=== PATIENT | male | born 1955 | race Caucasian/White ===

== ENCOUNTER → 2016-09-14 | Outpatient (CLI) | payer OTHER ==
[~2016-09-14] VITALS: Ht 175.3 cm; Wt 92.9 kg
[~2016-09-14] MED LIST: ASPIR 8181 MG PO; CLONIDINE0.1 PO; CYMBALTA30 MG PO; FENTANYL PA50 MCG/HR TRANSDERM; FISH OIL 1,001000 M2 PO; GLUCOPHAGE1000 MG PO; IBUPROFEN 200200 M1 PO; LANTUS100 UNIT/M SUBQ; LINZESS290 MCG PO; LISINOPRIL10 MG PO; MAGNESIUM OXID400 MG PO; METHADONE HCL 110 M1 PO; METHADONE HCL 110 MG PO; METHADONE HCL5 MG PO; MIRALAX17 GM PO; MOVANTIK25 MG PO; NORVASC5 MG PO; NOVOLOG100 UNIT/1 SUBQ; TRIPLE FLEX CA1 EACH PO; ZANAFLEX4 MG PO
--- NOTE | ~2016-09-14 | HPC ---
[facility] [address] [place] [address] PAIN MANAGEMENT CONSULTATION Name: JEF PACE Room #: REG Macie Molina#: [id number] Admission: 09/14/16 Attend Phys: Rocael Perrin DO Discharge: Date of : 55 Report #: [id number] THIS REPORT FOR: //name// CC: Dain Perrin SUBJECTIVE: The patient is a very pleasant 61-year-old gentleman being treated for diffuse myelopathy, neuropathic pain, requiring complex medication management. He came to us on higher dose of opiates, we weaned down to methadone 10 mg t.i.d., Cymbalta was increased from 30 to 60 mg at last visit. He returns to pain clinic today, doing very well. He rates his pain about 3/10, primarily low back, knees, feet, and hands. They are present since 2009, dull, aching, sore, issues that he rates as 3/10 on a 0-10 visual analog scale for pain. PHYSICAL EXAMINATION: GENERAL: Shows a 61-year-old gentleman, BMI is 30.2 kilograms per meter squared. Blood pressure is 151/85, pulse is 79, respirations are 16. Alert and oriented to person, place, and time, judged to be a reasonable historian. Rises from the chair using armrest. Diffuse tenderness across the low back. Gait is tandem. Lower extremity strength is preserved. The patient is noting some problems with constipation. He has failed MiraLax and Colace along with diet and fluid. We reviewed the fact that opiate medications are being used to provide analgesia adequate to support activities of daily living, not attempting to achieve a specific pain score on the 0-10 Visual Analog Scale. The current opiate medications are providing sufficient analgesia to allow the patient to participate in activities of daily living. The patient is not exhibiting any aberrant behavior suggestive of drug diversion. The patient is not having any adverse reactions to medications. The patient is not suffering from daytime somnolence or mental acuity changes. The patient is managing opiate-induced constipation with appropriate ninc-yld-fgfjinx agents and dietary considerations. The patient was counseled on concern for caution with operating a motor vehicle while using opiate medications. A physical exam was performed and the patient's functional status was evaluated. All patients with back pain were advised against the bed rest greater than 4 days and were advised to return to normal activities. Pain score assessment was noted and the treatment plan was reviewed with the patient. All current medications, both prescribed and OTC were reviewed and reconciled on the electronic medical record. Tobacco screening was accomplished and smoking cessation was advised when indicated. BMI was noted and diet/exercise modification was recommended for all patients [place] [address] PAIN MANAGEMENT CONSULTATION Name: KATELYNNJEF Room #: REG CLMacie Molina#: [id number] Admission: 09/14/16 Attend Phys: Rocael Perrin DO Discharge: Date of : 55 Report #: [id number] I reviewed with the patient today their responsibilities to safeguard prescription medications, reviewed their responsibility to utilize medications only as prescribed by the physician. They are to seek and receive pain medications only from 1 physician group ( [facility]). They are to use 1 pharmacy and keep the clinic informed if they change pharmacies. Their responsibilities include making followup visits in a timely fashion and to avoid abrupt discontinuation of medication usage. Their responsibilities further include bringing their medications (bottles from the pharmacy with residual pills) to the visit for possible confirmation of pill counts and the patient understands it is their responsibility to submit to random drug screens to ensure both that the medications prescribed are present, and that no other controlled substances are present. All prescriptions provided today were generated electronically. ASSESSMENT: Diffuse myelopathy, idiopathic, neuropathic pain, requiring complex medication management, stable on current dose of medication, methadone 10 mg t.i.d., Cymbalta 60 mg daily. RECOMMENDATION: We will continue current medication unchanged for another 2 months, last urine drug screen on 01/23/2016 was positive for prescribed medications. I gave the patient a sample for Movantik 25 mg and a prescription for same if this works. <ELECTRONICALLY SIGNED> By: Rocael Perrin DO 09/17/16 0749 1246 2048 oRcael Perrin DO /nt
[2016-09-14 12:32] VITALS: BP 151/85
== END ==
LOC: PAIN 09:22
DX: G95.89 Other specified diseases of spinal cord (principal); G58.8 Other specified mononeuropathies; I10 Essential (primary) hypertension

== ENCOUNTER → 2016-11-09 | Outpatient (CLI) | payer OTHER ==
[~2016-11-09] VITALS: Ht 175.3 cm; Wt 92.8 kg
[2016-11-09 13:24] VITALS: BP 148/86; BP 18/86
== END ==
LOC: PAIN 06:54
DX: M79.2 Neuralgia and neuritis, unspecified (principal); M54.9 Dorsalgia, unspecified; Z87.898 Personal history of other specified conditions; I10 Essential (primary) hypertension

== ENCOUNTER → 2017-01-18 | Outpatient (CLI) | payer OTHER ==
[~2017-01-18] VITALS: Ht 175.3 cm; Wt 94.3 kg
--- NOTE | ~2017-01-18 | HPC ---
[facility] [address] [address] PAIN MANAGEMENT CONSULTATION Name: JEF PACE Room #: REG [facility] Tracy#: [id number] Admission: 01/18/17 Attend Phys: Rocael Perrin DO Discharge: Date of : 55 Report #: [id number] THIS REPORT FOR: //name// CC: Dain Perrin HISTORY OF PRESENT ILLNESS: The patient is a pleasant 61-year-old gentleman I have been treating for neuropathic pain affecting lower extremities, history of idiopathic myelopathy, axial back pain requiring high risk complex medication management. Buccal swab at last visit was accomplished. It was positive for prescribed medication (methadone) and no others. The patient returns to pain clinic today noting medications are providing sufficient analgesia to participate in activities of daily living. He states he feels better and he has been for quite some time. He rates the pain a 4 on a VAS. Again, pain is primarily low back, knees, feet and hands. It has been present since 2009. PHYSICAL EXAMINATION: GENERAL: Shows a 61-year-old gentleman. BMI is 30.7 kilograms per meter squared. VITAL SIGNS: Generally stable with modest systolic hypertension, blood pressure 156/71, pulse 63, respirations 16, oxygen saturation 100%. Again, BMI is 30.7. NEUROLOGIC: Alert and oriented to person, place and time. MUSCULOSKELETAL: Rises from chair using armrest. Gait is tandem. Some diffuse low back tenderness. Lumbar flexion is modestly limited. We reviewed the fact that opiate medications are being used to provide analgesia adequate to support activities of daily living, not attempting to achieve a specific pain score on the 0-10 Visual Analog Scale. The current opiate medications are providing sufficient analgesia to allow the patient to participate in activities of daily living. The patient is not exhibiting any aberrant behavior suggestive of drug diversion. The patient is not having any adverse reactions to medications. The patient is not suffering from daytime somnolence or mental acuity changes. The patient is managing opiate-induced constipation with appropriate whnf-nrd-rkidlvp agents and dietary considerations. The patient was counseled on concern for caution with operating a motor vehicle while using opiate medications. A physical exam was performed and the patient's functional status was evaluated. All patients with back pain were advised against the bed rest greater than 4 days and were advised to return to normal activities. Pain score assessment was noted and the treatment plan was reviewed with the patient. All current medications, both prescribed and OTC were reviewed and reconciled on the electronic medical record. Tobacco screening was accomplished and smoking cessation was advised when indicated. BMI was noted and diet/exercise modification was recommended for all patients following outside normal [address] [address] PAIN MANAGEMENT CONSULTATION Name: JEF PACE Marie Room #: REG CL Tracy#: [id number] Admission: 01/18/17 Attend Phys: Rocael Perrin DO Discharge: Date of : 55 Report #: [id number] parameters. I reviewed with the patient today their responsibilities to safeguard prescription medications, reviewed their responsibility to utilize medications only as prescribed by the physician. They are to seek and receive pain medications only from 1 physician group ([facility]). They are to use 1 pharmacy and keep the clinic informed if they change pharmacies. Their responsibilities include making followup visits in a timely fashion and to avoid abrupt discontinuation of medication usage. Their responsibilities further include bringing their medications (bottles from the pharmacy with residual pills) to the visit for possible confirmation of pill counts and the patient understands it is their responsibility to submit to random drug screens to ensure both that the medications prescribed are present, and that no other controlled substances are present. All prescriptions provided today were generated electronically. ASSESSMENT: Idiopathic myelopathy, neuropathic pain in the lower extremities requiring high risk complex medication management, component of axial back pain. RECOMMENDATION: Continue methadone 10 mg t.i.d. I have taken the liberty of writing for 3 months of current medication. Follow up at that time, earlier if needed. <ELECTRONICALLY SIGNED> By: Rocael Perrin DO 01/21/17 0755 1450 2038 Rocael Perrin DO /nt
[2017-01-18 13:56] VITALS: BP 156/71
== END ==
LOC: PAIN 06:50
DX: M79.2 Neuralgia and neuritis, unspecified (principal); M54.9 Dorsalgia, unspecified; G99.2 Myelopathy in diseases classified elsewhere

== ENCOUNTER → 2017-05-20 | Outpatient (CLI) | payer OTHER ==
[~2017-05-20] VITALS: Ht 175.3 cm; Wt 95.4 kg
[~2017-05-20] MED LIST changes: +BACLOFEN20 MG PO; +CARVEDILOL6.25 MG; +COLACE100 MG PO; +JARDIANCE25 MG PO; +NABUMETONE 500500 M1 PO; +NEURONTIN 300300 M1 PO; +VICTOZA 3-0.6 MG/0.1 SUBQ
--- NOTE | ~2017-05-20 | HPC ---
[facility] [address] [address] PAIN MANAGEMENT CONSULTATION Name: JEF PACE Room #: REG JALYN Molina#: [id number] Admission: 05/20/17 Attend Phys: Rocael Perrin DO Discharge: Date of : 55 Report #: [id number] THIS REPORT FOR: //name// CC: Dain Perrin The patient is a 61-year-old gentleman, being treated for idiopathic myelopathy, neuropathic pain, axial back pain requiring high risk complex medication management. Last seen in the pain clinic 01/18/2017, continued on methadone 10 mg t.i.d. Last random drug screen 11/09/2016, was positive for prescribed medications. The patient returns to pain clinic today noting medications are providing sufficient analgesia to participate in activities of daily living. He had to discontinue Cymbalta due to sedation. He fell 2 weeks ago with exacerbation of right shoulder pain. He incidentally notes that about 2 weeks prior to the fall, he had done significant yard work and the right shoulder become problematic, it is somewhat quieted down prior to the fall. He states he fell simply because he lost his balance and "got his legs caught." We talked today about concern for opiate analgesics and cognitive impairment. The patient denies any loss of consciousness. He is having trouble with blood sugars, last hemoglobin A1c was 11. He is continued on metformin, Lantus, and NovoLog insulin. The patient notes subjective pain score 7 on a VAS, again primarily pain in the low back, knees, feet and hands along with the right shoulder. Right shoulder shows slight decreased range of motion to abduction. Pain with resistance to rotation of the right arm. The deltoid, triceps and biceps strength is symmetric. Deep tendon reflexes are preserved. Passive and active range of motion exacerbates pain in the right shoulder. Appears to be a little compromise likely the rotator muscles for external rotation. PHYSICAL EXAMINATION: Otherwise, shows a 61-year-old gentleman, BMI is 31.1 kg/m2. Blood pressure 143/81, pulse 64, and respirations 16. We reviewed the fact that opiate medications are being used to provide analgesia adequate to support activities of daily living, not attempting to achieve a specific pain score on the 0-10 Visual Analog Scale. The current opiate medications are providing sufficient analgesia to allow the patient to participate in activities of daily living. The patient is not exhibiting any aberrant behavior suggestive of drug diversion. The patient is not having any adverse reactions to medications. The patient is not suffering from daytime somnolence or mental acuity changes. The patient is managing opiate-induced constipation with appropriate aruu-iyq-spbjrbv agents and dietary considerations. The patient was counseled on concern for caution with operating a motor vehicle while using opiate medications. [address] [address] PAIN MANAGEMENT CONSULTATION Name: JEF PACE Marie Room #: REG CLI Tracy#: [id number] Admission: 05/20/17 Attend Phys: Rocael Perrin DO Discharge: Date of : 55 Report #: [id number] A physical exam was performed and the patient's functional status was evaluated. All patients with back pain were advised against the bed rest greater than 4 days and were advised to return to normal activities. Pain score assessment was noted and the treatment plan was reviewed with the patient. All current medications, both prescribed and OTC were reviewed and reconciled on the electronic medical record. Tobacco screening was accomplished and smoking cessation was advised when indicated. BMI was noted and diet/exercise modification was recommended for all patients following outside normal parameters. I reviewed with the patient today their responsibilities to safeguard prescription medications, reviewed their responsibility to utilize medications only as prescribed by the physician. They are to seek and receive pain medications only from 1 physician group ( [facility]). They are to use 1 pharmacy and keep the clinic informed if they change pharmacies. Their responsibilities include making followup visits in a timely fashion and to avoid abrupt discontinuation of medication usage. Their responsibilities further include bringing their medications (bottles from the pharmacy with residual pills) to the visit for possible confirmation of pill counts and the patient understands it is their responsibility to submit to random drug screens to ensure both that the medications prescribed are present, and that no other controlled substances are present. All prescriptions provided today were generated electronically. ASSESSMENT: Chronic pain syndrome, requiring high risk complex medication management, idiopathic myelopathy, axial back pain in a gentleman with right shoulder pain. RECOMMENDATION: Continue current medication unchanged, methadone 10 mg t.i.d. Suggest the patient try and cut the midday dose to half a tablet decreasing from 30 to 25 mg of methadone. We will see him back in 3 months for reevaluation. Follow up with orthopedics if right shoulder pain continues to be problematic, though presently it appears to be improving incrementally. <ELECTRONICALLY SIGNED> By: Rocael Perrin DO 05/22/17 0720 1210 1708 Rocael Perrin DO /nt
[2017-05-20 09:57] VITALS: BP 143/81
== END ==
LOC: PAIN 06:52
DX: G95.89 Other specified diseases of spinal cord (principal); G89.4 Chronic pain syndrome; M25.511 Pain in right shoulder; M79.2 Neuralgia and neuritis, unspecified; M54.9 Dorsalgia, unspecified; Z79.899 Other long term (current) drug therapy

== ENCOUNTER → 2017-07-22 | Outpatient (CLI) | payer OTHER ==
[~2017-07-22] VITALS: Ht 175.3 cm; Wt 96.2 kg
--- NOTE | ~2017-07-22 | HPC ---
[facility] [address] [place] [address] PAIN MANAGEMENT CONSULTATION Name: JEF PACE Room #: REG JALYN Molina#: [id number] Admission: 07/22/17 Attend Phys: Rocael Perrin DO Discharge: Date of : 55 Report #: [id number] THIS REPORT FOR: //name// CC: Dain Perrin DATE OF SERVICE: 07/22/2017 HISTORY OF PRESENT ILLNESS: The patient is a 61-year-old gentleman typically treated for chronic pain syndrome, requiring complex medication management, idiopathic myelopathy, neuropathy and axial back pain. He was initially seen in consultation on 10/21/2015. He came to us on Duragesic 50 mcg for 6 or 7 years, changing every 48 hours. States his pain was still a 6-8 on a visual analog scale. After a long discussion with the patient, we elected to enter in opiate consent to treat contract. He has been fairly stable on methadone 10 mg t.i.d. for quite some time. He returns to the pain clinic today. He was seen from 1315 to 1345. Greater than 50% of time was spent counseling the patient. He was seen in the company of his who is supportive, though she is concerned that he is having increasing pain. Last visit, we talked about trying to further wean his opiate analgesic. We tried going down to 25 mg and then 20 mg of methadone. Nonetheless, I had written for 90 of the 10 mg tablets. He returns to the pain clinic today. He had fallen once since we last saw him. He tells me today his pain seems to be increasing. He relates poor glucose control, which he states is related to pain (?). States he has fallen "a couple of times." States his primary pain is in his back and legs. PHYSICAL EXAMINATION: GENERAL: Shows a 61-year-old gentleman, BMI is elevated at 31.3 kilograms per meter squared. VITAL SIGNS: Blood pressure is modestly elevated at 159/90, pulse 67, respirations 18. NEUROLOGIC: He is alert and oriented to person, place and time, judged to be a reasonable historian. MUSCULOSKELETAL: He has an endomorphic build. Rises from chair using armrest. Gait is mildly ataxic. The lower extremity strength is symmetric at 4/5. Lumbar flexion is limited to 80 degrees. Patellar and Achilles reflexes are preserved. Does have some tenderness and probable spasm in the thoracic paravertebral muscles from T5 down to T12. [facility] [address] [place] [address] PAIN MANAGEMENT CONSULTATION Name: JEF PACE Room #: REG Macie Molina#: [id number] Admission: 07/22/17 Attend Phys: Rocael Perrin DO Discharge: Date of : 55 Report #: [id number] Long discussion with the patient and his today about therapeutic options. I stressed that we are trying to find the lowest dose of opiate, possible to keep the patient functional. He has had chronic pain for many years. He has had multiple workups at [facility] per the patient and his who is an RN. Apparently, no etiology was ever found for his myriad complaints, though they did often suggest that he had fibromyalgia. I pointed out that fibromyalgia per the CDC should be treated with no opiates. Concerned that when I took over his care, he was quite opiate habituated and had opiate tolerance issues. His physical exam has remained relatively unchanged. Again, modestly ataxic gait, diffuse back tenderness with no focal neurologic findings. We reviewed the fact that opiate medications are being used to provide analgesia adequate to support activities of daily living, not attempting to achieve a specific pain score on the 0-10 Visual Analog Scale. The current opiate medications are providing sufficient analgesia to allow the patient to participate in activities of daily living. The patient is not exhibiting any aberrant behavior suggestive of drug diversion. The patient is not having any adverse reactions to medications. The patient is not suffering from daytime somnolence or mental acuity changes. The patient is managing opiate-induced constipation with appropriate dvbw-vzj-ilajmov agents and dietary considerations. The patient was counseled on concern for caution with operating a motor vehicle while using opiate medications. A physical exam was performed and the patient's functional status was evaluated. All patients with back pain were advised against the bed rest greater than 4 days and were advised to return to normal activities. Pain score assessment was noted and the treatment plan was reviewed with the patient. All current medications, both prescribed and OTC were reviewed and reconciled on the electronic medical record. Tobacco screening was accomplished and smoking cessation was advised when indicated. BMI was noted and diet/exercise modification was recommended for all patients following outside normal parameters. I reviewed with the patient today their responsibilities to safeguard prescription medications, reviewed their responsibility to utilize medications only as prescribed by the physician. They are to seek and receive pain medications only from 1 physician group ([facility]). They are to use 1 pharmacy and keep the clinic informed if they change pharmacies. Their responsibilities include making followup visits in a timely fashion and to avoid abrupt discontinuation of medication usage. Their responsibilities further include bringing their medications (bottles from the pharmacy with residual pills) to the visit for possible confirmation of pill counts and the patient understands it is their responsibility to submit to random drug screens to [address] [address] PAIN MANAGEMENT CONSULTATION Name: JEF PACE Room #: REG [facility]#: [id number] Admission: 07/22/17 Attend Phys: Rocael Perrin DO Discharge: Date of : 55 Report #: [id number] ensure both that the medications prescribed are present, and that no other controlled substances are present. All prescriptions provided today were generated electronically. ASSESSMENT: Idiopathic myelopathy, axial back pain, requiring complex medication management. RECOMMENDATION: Prolonged visit with the patient and his today. Ultimately, we elected to continue methadone 10 mg q.8 hours. We will add baclofen 20 mg 1-2 at bedtime for nighttime spasms. We will start nabumetone 500 mg t.i.d. and tizanidine encourage use 4 mg t.i.d. (he is using this fairly infrequently presently) for ongoing axial back pain, myofascial pain component. I strongly recommended a physical therapy for core stabilization, balance exercises and range of motion. The patient was discharged in good and stable condition. Follow up in 2 months for reevaluation. The patient was seen for approximately 30 minutes today, greater than 50% of this 25+ minute visit was spent counseling the patient. <ELECTRONICALLY SIGNED> By: Rocael Perrin DO 07/25/17 0938 1511 1755 Rocael Perrin DO /nt
[2017-07-22 13:16] VITALS: BP 159/90
== END ==
LOC: PAIN 07-05 10:49
DX: M54.9 Dorsalgia, unspecified (principal); G95.9 Disease of spinal cord, unspecified; Z79.899 Other long term (current) drug therapy

== ENCOUNTER → 2017-10-28 | Outpatient (CLI) | payer OTHER ==
[~2017-10-28] VITALS: Ht 172.7 cm; Wt 90.3 kg
[~2017-10-28] MED LIST changes: -NEURONTIN 300300 M1 PO
--- NOTE | ~2017-10-28 | HPC ---
[facility] [place] [address] PAIN MANAGEMENT CONSULTATION Name: JEF PACE Room #: REG [facility] Tracy#: [id number] Admission: 10/28/17 Attend Phys: Rocael Perrin DO Discharge: Date of : 55 Report #: [id number] THIS REPORT FOR: //name// CC: Dain Perrin The patient is a 62-year-old gentleman being treated for idiopathic myelopathy, neuropathic pain requiring complex medication management, component of axial back pain and myofascial pain. He came to us on high dose opiates, Duragesic 50 mcg for 6 to 7 years, approximately 200 milligram morphine equivalents daily. We rotated the methadone 10 mg q. 8 hours. He has been relatively stable on this medication. Last visit on 07/22/2017. The patient notes he has had multiple workups including [facility] all finding no dramatic etiology for his idiopathic myelopathy and ongoing chronic pain concerns. The patient returns to the pain clinic today noting pain continues to be problematic low back, knees, feet, hands and arms. He has lost a little bit of weight, his non-insulin dependent diabetes medications have changed and he is now taking Victoza and Jardiance. With this, his hemoglobin A1c are better and his weight is actually down a little bit, weight had been 95 kilograms and he is down to about 90 kilograms. He states activities, stairs and walking seems to exacerbate pain. He gets some relief "with heat and medication." PHYSICAL EXAMINATION: Unchanged other than slight weight loss, is a 62-year-old gentleman, BMI is now 30.3 kilograms per meter squared. Blood pressure is 163/82, pulse 74, respirations of 14, room air oxygen saturation is 98%. Subjective pain score is 6 on a VAS. Rises from chair using armrest. He has diffuse tenderness across the low back. No discrete trigger points are noted. Lower extremity strength is diminished, but symmetric. Straight leg raise is negative and integument is intact. We reviewed the fact that opiate medications are being used to provide analgesia adequate to support activities of daily living, not attempting to achieve a specific pain score on the 0-10 Visual Analog Scale. The current opiate medications are providing sufficient analgesia to allow the patient to participate in activities of daily living. The patient is not exhibiting any aberrant behavior suggestive of drug diversion. The patient is not having any adverse reactions to medications. The patient is not suffering from daytime somnolence or mental acuity changes. The patient is managing opiate-induced constipation with appropriate abnz-arn-vqznfcu agents and dietary considerations. The patient was counseled on concern for caution with operating a motor vehicle while using opiate medications. A physical exam was performed and the patient's functional status was evaluated. All patients with back pain were advised against the bed rest greater than 4 days and were advised to return to normal activities. Pain score assessment was noted and the treatment plan was reviewed with the patient. All current medications, both prescribed and OTC were reviewed and reconciled on the [address] [address] PAIN MANAGEMENT CONSULTATION Name: JEF PACE Room #: REG JALYN Molina#: [id number] Admission: 10/28/17 Attend Phys: Rocael Perrin DO Discharge: Date of : 55 Report #: [id number] electronic medical record. Tobacco screening was accomplished and smoking cessation was advised when indicated. BMI was noted and diet/exercise modification was recommended for all patients following outside normal parameters. I reviewed with the patient today their responsibilities to safeguard prescription medications, reviewed their responsibility to utilize medications only as prescribed by the physician. They are to seek and receive pain medications only from 1 physician group ([facility]). They are to use 1 pharmacy and keep the clinic informed if they change pharmacies. Their responsibilities include making followup visits in a timely fashion and to avoid abrupt discontinuation of medication usage. Their responsibilities further include bringing their medications (bottles from the pharmacy with residual pills) to the visit for possible confirmation of pill counts and the patient understands it is their responsibility to submit to random drug screens to ensure both that the medications prescribed are present, and that no other controlled substances are present. All prescriptions provided today were generated electronically. ASSESSMENT: Chronic axial back pain, history of idiopathic myelopathy, neuropathic pain requiring complex medication management, stable on methadone 10 mg q. 8 hours. RECOMMENDATION: Continue methadone 10 mg q. 8 hours, clonidine 0.1 at bedtime, nabumetone 500 mg b.i.d. and baclofen 20 mg 1-2 at bedtime. Reviewed last random drug screen on 11/12/2016 positive for prescribed medications. I have taken the liberty of writing for 2 months of current medication. Follow up with [facility]. By: [id number] Rocael Perrin DO /geraldine
[2017-10-28 12:42] VITALS: BP 163/82
== END ==
LOC: PAIN 06:33
DX: M54.5 Low back pain (principal); M79.1 Myalgia; Z79.899 Other long term (current) drug therapy

== ENCOUNTER → 2018-03-18 | Outpatient (CLI) | payer OTHER ==
[~2018-03-18] VITALS: Ht 172.7 cm; Wt 86.9 kg
[~2018-03-18] MED LIST changes: +NEURONTIN 300300 M1 PO
--- NOTE | ~2018-03-18 | HPC ---
[facility] [place] [address] [place] [address] PAIN MANAGEMENT CONSULTATION Name: JEF PACE Room #: REG YULISSAMacie Molina#: [id number] Admission: 03/18/18 Attend Phys: Simon Perrin DO Discharge: Date of : 55 Report #: [id number] THIS REPORT FOR: //name// CC: Simon Byrd MD DATE OF SERVICE: 03/18/2018 CHIEF COMPLAINT: Idiopathic myelopathy, neuropathic pain requiring complex medication management. HISTORY OF PRESENT ILLNESS: As you know, the patient is a 62-year-old male followed by my partner, Dr. Rocael Perrin for idiopathic peripheral neuropathy. We saw the patient initially on 10/21/2015 where he was taking excessively high opioid doses. He has been weaned down to a more appropriate dosing taking methadone 10 mg 3 times a day, which is still equates to higher than the normal [facility] recommended 90 morphine equivalents. He returns stating that his medication may not be working as well as possible and wants to discuss potential changes. He has been recently diagnosed with fibromyalgia, which does fit with his generalized body symptoms. Apparently, he has been evaluated multiple times with the [facility]. He has seen virtually every physician in the area handling neuropathic issues, all of which have found no etiology for his symptoms. He does appear to be suffering from what would be classified as fibromyalgia-like syndrome, but has not been treated for this issue. He returns to discuss options for treatment. ALLERGIES: No known drug allergies. CURRENT MEDICATIONS: Methadone 10 mg 3 times a day, clonidine 0.1 mg p.o. at bedtime anxiety, Victoza subQ per day, Jardiance 25 mg once a day, tizanidine 4 mg 3 times a day, carvedilol 6.25 mg twice a day, Colace 100 mg once a day, ibuprofen 200 mg p.r.n., docusate, omega-3 fish oil 1 tab per day, glucosamine chondroitin 1 tab per day, magnesium oxide 400 mg twice a day, aspirin 81 mg per day, lisinopril 10 mg once a day, sliding scale insulin p.r.n., Levemir 20 units before bedtime, metformin 1000 mg twice a day. SOCIAL HISTORY: The patient denies tobacco, denies IV or illicit drug use, denies any chronic alcohol use. He is not working. He is accompanied by his who is present in room today. IMAGING: There is no new imaging available. PHYSICAL EXAMINATION: VITAL SIGNS: Blood pressure 133/78, pulse 81, respiratory rate 16 and unlabored. The patient is 98% on room air. Height 5 feet 8 inches tall, [place] [address] PAIN MANAGEMENT CONSULTATION Name: JEF PACE Room #: REG [facility].#: [id number] Admission: 03/18/18 Attend Phys: Simon Perrin DO Discharge: Date of : 55 Report #: [id number] 191.6 pounds, BMI calculated 29.1. GENERAL: Well-developed, well-nourished, well-hydrated 62-year-old male, appears anxious, placing current pain score 7-8/10. HEENT: Normocephalic, atraumatic. Pupils equal, round, reactive to light. EXTREMITIES: Show no clubbing, no cyanosis, no edema. MUSCULOSKELETAL: Rises from a chair without difficulty. He has diffuse tenderness across his low back and multiple tender points, specifically 16 of 18 specific trigger points. Lower extremity strength is symmetrical. Upper extremity strength is symmetrical, but appears to be deconditioned. Seated straight leg raising negative. Supine straight leg raising negative. ASSESSMENT: 1. Fibromyalgia. 2. Peripheral neuropathy of unknown origin. 3. Opioid dependency. 4. Complex medication management. 5. Chronic intractable pain. PLAN: 1. The patient returns today in followup visit indicating that his methadone does not appear to be working "as well." The patient and I had a very long discussion today about opioid medications. They are not indicated in fibromyalgia-like symptoms and this appears what the patient may be suffering from. He has been evaluated by multiple physicians not only the [facility], but here in the [facility]. No physician has been able to find a specific etiology for his ongoing symptoms. He has been given the presumptive diagnosis of fibromyalgia, which certainly fits with the generalized nature of his symptoms and the lack of any true diagnostic findings. We discussed with the patient today. It does not appear he has been treated for fibromyalgia-like symptoms. He has been on gabapentin in the past, but states it was discontinued as he failed but further evaluation indicated that he was too low of a dose. He has been on Lyrica, again too low of a dose. No side effects and no efficacy with the medication reported. We discussed this today. In regards to opioid medication, I am resistant to initiate any changes in that therapy. He is on methadone 10 mg dose equating to 30 mg total, utilizing the CDC's conversion factor of 8:1. He is taking 240 mg of morphine a day equivalency, this is well over the CDC's recommended 90 morphine equivalents a day. Further escalation in dosing is not recommended nor would I recommend changing from the medication as this medication has three receptor activity instead of just single mu receptor activity, which is contraindicated in fibromyalgia. 2. The patient was provided prescription of methadone 10 mg dose 1 tab p.o. t.i.d., I have given the patient #90 tablets, releasing today and 4 weeks from today. We did discuss with the patient. Treatment options may include weaning off of opioids entirely if it is determined fibromyalgia is the source of his symptoms. 3. We reviewed the fact that opiate medications are being used to provide [facility] [address] [place] [address] PAIN MANAGEMENT CONSULTATION Name: KATELYNNJEF Marie Room #: REG JALYN Molina#: [id number] Admission: 03/18/18 Attend Phys: Simon Perrin DO Discharge: Date of : 55 Report #: [id number] analgesia adequate to support activities of daily living, not attempting to achieve a specific pain score on the 0-10 Visual Analog Scale. The current opiate medications are providing sufficient analgesia to allow the patient to participate in activities of daily living. The patient is not exhibiting any aberrant behavior suggestive of drug diversion. The patient is not having any adverse reactions to medications. The patient is not suffering from daytime somnolence or mental acuity changes. The patient is managing opiate-induced constipation with appropriate bcvq-wsk-auaxqkv agents and dietary considerations. The patient was counseled on concern for caution with operating a motor vehicle while using opiate medications. A physical exam was performed and the patient's functional status was evaluated. All patients with back pain were advised against the bed rest greater than 4 days and were advised to return to normal activities. Pain score assessment was noted and the treatment plan was reviewed with the patient. All current medications, both prescribed and OTC were reviewed and reconciled on the electronic medical record. Tobacco screening was accomplished and smoking cessation was advised when indicated. BMI was noted and diet/exercise modification was recommended for all patients following outside normal parameters. I reviewed with the patient today their responsibilities to safeguard prescription medications, reviewed their responsibility to utilize medications only as prescribed by the physician. They are to seek and receive pain medications only from 1 physician group ( [facility]). They are to use 1 pharmacy and keep the clinic informed if they change pharmacies. Their responsibilities include making followup visits in a timely fashion and to avoid abrupt discontinuation of medication usage. Their responsibilities further include bringing their medications (bottles from the pharmacy with residual pills) to the visit for possible confirmation of pill counts and the patient understands it is their responsibility to submit to random drug screens to ensure both that the medications prescribed are present, and that no other controlled substances are present. All prescriptions provided today were generated electronically. 4. The patient will be started on gabapentin 300 mg dose, will start 1 tab p.o. t.i.d. initially in 3 days, then escalate to 1 tab in the morning, 1 tab at noon, 2 tabs at night for 3 days; then 1 tab in the morning, 1 tab at noon, 3 tabs at night for 3 days; then 1 tab in the morning, 1 tab at noon, 4 tabs at night for 3 nights; then can continue escalating starting in the morning hours every 3 nights, ultimately reaching either 1200 mg 3 times a day. Side effects he cannot tolerate or improvement in symptoms. Once he reaches one of these issues, he is to contact our clinic to advise of the dosing and the changes necessary. He was given a titration schedule in written form today to follow. [address] [address] PAIN MANAGEMENT CONSULTATION Name: JEF PACE Room #: REG JALYN Molina#: [id number] Admission: 03/18/18 Attend Phys: Simon Perrin DO Discharge: Date of : 55 Report #: [id number] 5. We will see the patient back in followup visit in 2 months. At that time, discuss the efficacy of the medication changes made today. By: [id number] Simon Perrin DO /nt
[2018-03-18 13:51] VITALS: BP 133/78
== END ==
LOC: PAIN 07:06
DX: G62.9 Polyneuropathy, unspecified (principal); G89.4 Chronic pain syndrome; F11.20 Opioid dependence, uncomplicated; M79.7 Fibromyalgia; Z79.899 Other long term (current) drug therapy

== ENCOUNTER → 2018-06-10 | Outpatient (CLI) | payer OTHER ==
[~2018-06-10] VITALS: Ht 172.7 cm; Wt 90.9 kg
[~2018-06-10] MED LIST changes: +HUMALOG100 UNIT/1 SUBQ; +TOUJEO SOL300 UNIT/1 SUBQ
[2018-06-10 14:08] VITALS: BP 140/74
--- NOTE | 2018-06-10 14:09 | NUR ---
Pain Clinic Assessment: 1. History of Osteoarthritis: Left Lower Extremity Right Lower Extremity History of Rheumatoid Arthritis: NO 2. Height: 5 ft. 8 in. 172.7 cm. Weight: 200.4 lb. oz. 90.901 kg. Patient's BMI: 30.5 3. Vital Signs: BP: 140/74 Pulse: 70 Resp: 16 Temp: 02 Sat: 95 ECG Mon: 4. Pain Intensity: 4 5. Fall Risk: Dizziness: N Needs help standing or walking: N Fallen in the last 3 months: N Fall risk comments: 6. Patient on Blood Thinner: None 7. History of Hypertension: Y 8. Opioid Therapy greater than 6 weeks: Y Opiate Contract Signed: 10/21/15 9. Risk Assessment Tool Provided: 0-LOW RISK 10. Functional Assessment Tool: / 11. Recreational Drug Use: Never Drug Type: Tobacco Use: Never Smoker Tobacco Type: Amount or Packs/day: How Many Years: Alcohol Use: No Frequency: Quant:
== END ==
LOC: PAIN 06:48
DX: M54.5 Low back pain (principal); M25.561 Pain in right knee; M25.562 Pain in left knee; M79.642 Pain in left hand; M79.641 Pain in right hand; M79.673 Pain in unspecified foot; M25.511 Pain in right shoulder; M79.602 Pain in left arm; M79.601 Pain in right arm; G89.29 Other chronic pain; Z79.891 Long term (current) use of opiate analgesic

== ENCOUNTER → 2018-10-15 | Outpatient (CLI) | payer OTHER ==
[~2018-10-15] VITALS: Ht 172.7 cm; Wt 88.2 kg
[2018-10-15 10:10] VITALS: BP 141/77
--- NOTE | 2018-10-15 10:20 | NUR ---
Pain Clinic Assessment: 1. History of Osteoarthritis: Left Lower Extremity Right Lower Extremity B/L KNEES History of Rheumatoid Arthritis: NO 2. Height: 5 ft. 8 in. 172.7 cm. Weight: 194.4 lb. oz. 88.179 kg. Patient's BMI: 29.6 3. Vital Signs: BP: 141/77 Pulse: 67 Resp: 16 Temp: 02 Sat: 98 ECG Mon: 4. Pain Intensity: 4 5. Fall Risk: Dizziness: N Needs help standing or walking: N Fallen in the last 3 months: N Fall risk comments: 6. Patient on Blood Thinner: None 7. History of Hypertension: Y 8. Opioid Therapy greater than 6 weeks: Y Opiate Contract Signed: 10/21/15 9. Risk Assessment Tool Provided: 0-LOW RISK 10. Functional Assessment Tool: 58/70 11. Recreational Drug Use: Never Drug Type: Tobacco Use: Never Smoker Tobacco Type: Amount or Packs/day: How Many Years: Alcohol Use: No Frequency: Quant:
--- NOTE | 2018-10-16 08:02 | HPC ---
[facility] [address] [place] [address] PAIN MANAGEMENT CONSULTATION Name: JEF PACE Room #: REG JALYN Molina#: [id number] Admission: 10/15/18 ������������������ Attend Phys: Linda Leal Discharge: ������������������ Date of : 55 Report #: [id number] THIS REPORT FOR: //name// CC: Linda Leal Dain Byrd DATE OF SERVICE: 10/15/2018 CHIEF COMPLAINT: Idiopathic myelopathy, neuropathic pain requiring complex medical management. HISTORY OF PRESENT ILLNESS: As you know, this is a very pleasant 63-year-old gentleman who returns to the pain clinic today for refill of his medications. He tells me he is doing quite well, rating his pain score 4/10. Most of his pain is located in his lower back, feet and hands. It is an achy, sharp pain as he describes it today. It is worse with activity, walking the stairs or just walking in general. Medication and heat are very helpful in controlling his pain. He tells me that he does not have any problems with constipation as long as he takes some magnesium, which he does take on a daily basis and will take an extra if he needs it. Overall, he feels like he is doing quite well. He has decreased his gabapentin slightly finding that the higher dose did make him slightly dizzy. He did not fall, but he tells me he decreased his dose and now he takes 600 mg 3 times a day. He feels like this does give him some benefit with his numbness and burning and still able to function and not fall. ALLERGIES: No known drug allergies. CURRENT MEDICATIONS: Methadone 10 mg 3 times a day, gabapentin 600 mg 3 times a day, insulin 300 mg units and Humalog before meals and at dinner, Victoza subcutaneous daily, Jardiance 25 mg daily, carvedilol 6.25 mg b.i.d., Colace p.r.n., ibuprofen p.r.n., fish oil daily, glucosamine daily, magnesium 400 mg b.i.d., aspirin 81 mg, lisinopril 10 mg daily, metformin 1000 mg b.i.d. PQRS: 1. The patient has a history of osteoarthritis in his lower extremities and knees. He denies any rheumatoid arthritis. 2. Height is 5 feet 8 inches, weight is 194, BMI is 29. 3. Vital signs: Blood signs 141/77, pulse is 67, respirations 16, oxygen sat is 98. 4. Pain score is 4/10. 5. Fall risk. Denies dizziness, does not need help standing or walking. He has not fallen in the last 3 months. 6. The patient is not on any blood thinners, does take medicine for hypertension. 7. His opioid therapy is greater than 6 weeks; therefore, an opioid signed contract is on the chart. [address] [address] PAIN MANAGEMENT CONSULTATION Name: JEF PACE Room #: REG [facility] Tracy#: [id number] Admission: 10/15/18 ������������������ Attend Phys: Linda Leal Discharge: ������������������ Date of : 55 Report #: [id number] 8. Risk assessment tool is low. Functional assessment is 58/70. 9. Recreational drug use, he denies. He is not a smoker and does not drink alcohol. We did check the prescription monitoring system. The patient is filling appropriately for his medications from Dr. Simon Perrin. There is a drug screen on the chart that is appropriate for his medications. PHYSICAL EXAMINATION: GENERAL: This is a well-developed, well-nourished, well-hydrated 63-year-old gentleman who appears his stated age. Placing his pain score today at 4/10. He is alert and orientated. HEENT: Normocephalic, atraumatic. Pupils equal, round and reactive to light. Mucous membranes are moist. EXTREMITIES: No clubbing, no cyanosis, no edema. MUSCULOSKELETAL: Tenderness over his lower back. His lower extremity strength is symmetrical and bulk and tone. In his upper and lower extremities, he is able to move from sitting to standing without any difficulty. He does walk with a slightly antalgic gait. Pain radiates from his lower back down his legs into his feet. ASSESSMENT: 1. Fibromyalgia. 2. Peripheral neuropathy of unknown origin. 3. Opioid dependency. 4. Complex medical management under terms of written opioid agreement. 5. Chronic intractable pain. We reviewed the fact that opiate medications are being used to provide analgesia adequate to support activities of daily living, not attempting to achieve a specific pain score on the 0-10 Visual Analog Scale. The current opiate medications are providing sufficient analgesia to allow the patient to participate in activities of daily living. The patient is not exhibiting any aberrant behavior suggestive of drug diversion. The patient is not having any adverse reactions to medications. The patient is not suffering from daytime somnolence or mental acuity changes. The patient is managing opiate-induced constipation with appropriate gawa-dbp-eymnmlh agents and dietary considerations. The patient was counseled on concern for caution with operating a motor vehicle while using opiate medications. A physical exam was performed and the patient's functional status was evaluated. All patients with back pain were advised against the bed rest greater than 4 days and were advised to return to normal activities. Pain score assessment was noted and the treatment plan was reviewed with the patient. All current medications, both prescribed and OTC were reviewed and reconciled on the electronic medical record. Tobacco screening was accomplished and smoking cessation was advised when indicated. BMI was noted and diet/exercise [facility] [address] [place] [address] PAIN MANAGEMENT CONSULTATION Name: JEF PACE Room #: REG [facility] Logan.#: [id number] Admission: 10/15/18 ������������������ Attend Phys: Linda Leal Discharge: ������������������ Date of : 55 Report #: [id number] modification was recommended for all patients following outside normal parameters. I reviewed with the patient today their responsibilities to safeguard prescription medications, reviewed their responsibility to utilize medications only as prescribed by the physician. They are to seek and receive pain medications only from 1 physician group ( [facility]). They are to use 1 pharmacy and keep the clinic informed if they change pharmacies. Their responsibilities include making followup visits in a timely fashion and to avoid abrupt discontinuation of medication usage. Their responsibilities further include bringing their medications (bottles from the pharmacy with residual pills) to the visit for possible confirmation of pill counts and the patient understands it is their responsibility to submit to random drug screens to ensure both that the medications prescribed are present, and that no other controlled substances are present. All prescriptions provided today were generated electronically. PLAN: 1. We discussed treatment options with the patient today. The patient is doing quite well with his current medication regimen of methadone 30 mg a day total based on the CDC guidelines and the morphine mEq. He is at 90 morphine mEq on this high dose, but doing quite well and we have elected to keep him at this current level. He is able to function quite well and go about his activities of daily living and be quite productive. Scripts given today for methadone 10 mg #90 for release today and 4-week. 2. The patient tells me that with the higher dose of gabapentin, he experienced some dizziness, though he did not have any falls. He decreased his dose to 600 mg 3 times a day. Feels like this is quite beneficial for him. He does still have some burning and tingling that he experiences in his hands and feet, but it is significantly less and very tolerable. So therefore today, we will give him his gabapentin 300 mg tablets 2-3 times a day, quantity 180 with one additional refill. 3. The patient will return in 2 months' time period according to the guidelines of our clinic due to his morphine mEq number of 90 or above. The patient verbalizes understanding. Dr Simon Perrin did collaborate care today. ��������������������������������������������� <ELECTRONICALLY SIGNED> ���������������������������������������� By: Linda Leal ��������������������������������������������� 10/16/18 0802 [id number] Linda Leal /geraldine
== END ==
LOC: PAIN 06:55
DX: G62.9 Polyneuropathy, unspecified (principal); G89.4 Chronic pain syndrome; M79.7 Fibromyalgia; F11.20 Opioid dependence, uncomplicated; Z79.899 Other long term (current) drug therapy

== ENCOUNTER → 2019-01-20 | Outpatient (CLI) | payer OTHER ==
[~2019-01-20] VITALS: Ht 175.3 cm; Wt 88.5 kg
[~2019-01-20] MED LIST changes: +NEURONTIN 300M300 M2 PO; +PROTONIX40 M1 PO
[2019-01-20 12:35] VITALS: BP 119/65
--- NOTE | 2019-01-20 12:39 | NUR ---
Pain Clinic Assessment: 1. History of Osteoarthritis: Left Lower Extremity Right Lower Extremity B/L KNEES History of Rheumatoid Arthritis: NO 2. Height: 5 ft. 9 in. 175.3 cm. Weight: 195.0 lb. oz. 88.452 kg. Patient's BMI: 28.8 3. Vital Signs: BP: 119/65 Pulse: 66 Resp: 18 Temp: 02 Sat: 96 ECG Mon: 4. Pain Intensity: 5 5. Fall Risk: Dizziness: N Needs help standing or walking: N Fallen in the last 3 months: N Fall risk comments: 6. Patient on Blood Thinner: None 7. History of Hypertension: Y 8. Opioid Therapy greater than 6 weeks: Y Opiate Contract Signed: 10/21/15 9. Risk Assessment Tool Provided: 1-low 10. Functional Assessment Tool: 11. Recreational Drug Use: Never Drug Type: Tobacco Use: Never Smoker Tobacco Type: Amount or Packs/day: How Many Years: Alcohol Use: No Frequency: Quant:
--- NOTE | 2019-01-22 13:11 | HPC ---
[facility] [address] [place] [address] PAIN MANAGEMENT CONSULTATION Name: JEF PACE Room #: REG JALYN Molina#: [id number] Admission: 01/20/19 ������������������ Attend Phys: Linda Leal Discharge: ������������������ Date of : 55 Report #: [id number] THIS REPORT FOR: //name// CC: Linda Hadley MD DATE OF SERVICE: 01/20/2019 CHIEF COMPLAINT: Idiopathic myelopathy, neuropathic pain requiring complex medical management. HISTORY OF PRESENT ILLNESS: This is a very pleasant 63-year-old gentleman who returns to the pain clinic today for a refill of his medications that he uses to help treat his ongoing neuropathic pain and his idiopathic peripheral neuropathy. Per the patient's report, he had a colonoscopy in early October and his GI doctor found that he was suffering from quite a bit of constipation. He encouraged him to decrease his narcotic use as well as starting him on Movantik. The patient has since found the Movantik very helpful in controlling his constipation as well as he has decreased his methadone from 30 mg total a day to 25 mg a day. He finds that his pain is mostly unchanged, still rating it at 5/10, in his lower back, hands, knees and feet. It is an aching, sharp pain that is worse with activity and walking, but better with his medication as well as heat and stretching. The patient also has told me he has decreased his gabapentin slightly which we had talked about at his last visit taking 900 mg in the morning, 600 midday, and 900 at night. He still finds this helpful treating his neuropathic pain. He reports that he is going to start trying yoga. He finds that may be beneficial and stretching because he does get some relief from that in the past when he has tried it with his pain symptoms. ALLERGIES: No known drug allergies. CURRENT LIST OF MEDICATIONS: Methadone 10 mg in the morning, 5 mg at noon and 5 at bedtime; gabapentin 900, 600, 900 mg daily; Protonix; Movantik 25 mg daily; insulin, Humalog and Toujeu; Victoza, Jardiance, carvedilol, Colace, fish oil, glucosamine chondroitin, magnesium, aspirin, lisinopril and metformin. PQRS: 1. He has history of osteoarthritis in his lower extremities and knees. Denies any rheumatoid arthritis. 2. Height is 5 feet 9 inches, weight is 195, BMI is 28. 3. Vital signs 119/65, pulse is 66, respirations 18, oxygen sat is 96. 4. Pain score is 5/10. [address] [address] PAIN MANAGEMENT CONSULTATION Name: JEF PACE Room #: REG Macie Molina#: [id number] Admission: 01/20/19 ������������������ Attend Phys: Linda Leal Discharge: ������������������ Date of : 55 Report #: [id number] 5. Denies dizziness, does not need help walking or standing, has not fallen in the last 3 months. 6. The patient is not on any blood thinners. He does take medicine for hypertension. 7. Opioid therapy is greater than 6 weeks; therefore, an opiate signed contract is on the chart. Risk assessment tool is low. Functional assessment is 46/70. 8. Recreational drug use, he denies. He is not a smoker and does not drink alcohol. According to the prescription monitoring system, the patient is filling appropriately for his medications. We will check a drug screen on his next visit. PHYSICAL EXAMINATION: GENERAL: This is a well-developed, well-nourished 63-year-old gentleman who appears his stated age, placing his current pain score at 5/10 today. HEENT: Normocephalic, atraumatic. Extraocular eye muscles are intact. Mucous membranes are moist. EXTREMITIES: No clubbing, no cyanosis, no edema. MUSCULOSKELETAL: The patient walks with a slightly antalgic gait. His pain radiates in his lower back down into his bilateral legs to his feet. His lower extremity strength is symmetrical with bulk and tone. ASSESSMENT: 1. Fibromyalgia. 2. Idiopathic myelopathy. 3. Peripheral neuropathy of unknown origin. 4. Opioid dependency. 5. Complex medical management under terms of written opioid agreement. 6. Opioid-induced constipation. We reviewed the fact that opiate medications are being used to provide analgesia adequate to support activities of daily living, not attempting to achieve a specific pain score on the 0-10 Visual Analog Scale. The current opiate medications are providing sufficient analgesia to allow the patient to participate in activities of daily living. The patient is not exhibiting any aberrant behavior suggestive of drug diversion. The patient is not having any adverse reactions to medications. The patient is not suffering from daytime somnolence or mental acuity changes. The patient is managing opiate-induced constipation with appropriate ckjx-flj-fcjayue agents and dietary considerations. The patient was counseled on concern for caution with operating a motor vehicle while using opiate medications. A physical exam was performed and the patient's functional status was evaluated. All patients with back pain were advised against the bed rest greater than 4 days and were advised to return to normal activities. Pain score assessment was [address] [address] PAIN MANAGEMENT CONSULTATION Name: JEF PACE Room #: REG JALYN Molina#: [id number] Admission: 01/20/19 ������������������ Attend Phys: Linda Leal Discharge: ������������������ Date of : 55 Report #: [id number] noted and the treatment plan was reviewed with the patient. All current medications, both prescribed and OTC were reviewed and reconciled on the electronic medical record. Tobacco screening was accomplished and smoking cessation was advised when indicated. BMI was noted and diet/exercise modification was recommended for all patients following outside normal parameters. I reviewed with the patient today their responsibilities to safeguard prescription medications, reviewed their responsibility to utilize medications only as prescribed by the physician. They are to seek and receive pain medications only from 1 physician group ( [facility]). They are to use 1 pharmacy and keep the clinic informed if they change pharmacies. Their responsibilities include making followup visits in a timely fashion and to avoid abrupt discontinuation of medication usage. Their responsibilities further include bringing their medications (bottles from the pharmacy with residual pills) to the visit for possible confirmation of pill counts and the patient understands it is their responsibility to submit to random drug screens to ensure both that the medications prescribed are present, and that no other controlled substances are present. All prescriptions provided today were generated electronically. PLAN: 1. We discussed treatment options with the patient today. The patient has decreased his methadone slightly since our last visit. We did discuss decreasing that further to a total of 20 mg. The patient did report some withdrawal side effects when he decreased too quickly, currently is taking 25 mg total a day. We have refilled his medicine for 10 mg, #75. The patient instructed to take 1 in the morning, 1 midday, and 1/2 at bedtime. Scripts for today and 4 weeks. The patient will try to decrease this medication in his second month, if he is able; otherwise, when we see him in 2 months, we will decrease him to 60 tablets of his methadone 10 mg. The patient verbalizes understanding. He would like to decrease his medicine as well stating he has not noticed a significant impact in his pain score or activity, though he has had less constipation since decreasing his medicine. 2. Gabapentin prescription given for 720 pills of 300-mg gabapentin with 1 additional refill. This is a 3-month supply per his insurance company is requiring it. He takes 3 in the morning, 2 midday and 3 at bedtime. He finds this medicine very beneficial in helping his neuropathic pain. 3. The patient is seen in collaboration today with Dr. Simon Perrin who did see the patient as well. At the next visit, we will repeat a urine drug screen on him. ��������������������������������������������� <ELECTRONICALLY SIGNED> ���������������������������������������� By: Linda Leal ��������������������������������������������� 01/22/19 1311 [id number] Linda Leal /geraldine
== END ==
LOC: PAIN 06:50
DX: G95.89 Other specified diseases of spinal cord (principal); M79.7 Fibromyalgia; G62.9 Polyneuropathy, unspecified; K59.03 Drug induced constipation; T40.2X5A Adverse effect of other opioids, initial encounter; Z79.891 Long term (current) use of opiate analgesic; Z79.899 Other long term (current) drug therapy; Z79.82 Long term (current) use of aspirin; Z79.4 Long term (current) use of insulin

== ENCOUNTER → 2019-05-26 | Outpatient (CLI) | payer OTHER ==
[~2019-05-26] VITALS: Ht 167.6 cm; Wt 90.8 kg
[~2019-05-26] MED LIST changes: +NEURONTIN300 MG PO
[2019-05-26 12:42] VITALS: BP 156/98
--- NOTE | 2019-05-26 12:48 | NUR ---
Pain Clinic Assessment: 1. History of Osteoarthritis: Left Lower Extremity Right Lower Extremity B/L KNEES History of Rheumatoid Arthritis: NO 2. Height: 5 ft. 6 in. 167.6 cm. Weight: 200.2 lb. oz. 90.810 kg. Patient's BMI: 32.3 3. Vital Signs: BP: 156/98 Pulse: 77 Resp: 20 Temp: 02 Sat: 97 ECG Mon: 4. Pain Intensity: 5 5. Fall Risk: Dizziness: N Needs help standing or walking: N Fallen in the last 3 months: N Fall risk comments: 6. Patient on Blood Thinner: None 7. History of Hypertension: Y 8. Opioid Therapy greater than 6 weeks: Y Opiate Contract Signed: 10/21/15 9. Risk Assessment Tool Provided: 1-low 10. Functional Assessment Tool: 11. Recreational Drug Use: Never Drug Type: Tobacco Use: Never Smoker Tobacco Type: Amount or Packs/day: How Many Years: Alcohol Use: No Frequency: Quant:
--- NOTE | 2019-05-28 08:13 | HPC ---
[facility] [address] [place] [address] PAIN MANAGEMENT CONSULTATION Name: JEF PACE Room #: REG JALYN Molina#: [id number] Admission: 05/26/19 Attend Phys: Linda Leal Discharge: Date of : 55 Report #: [id number] THIS REPORT FOR: //name// CC: Linda Hadley MD DATE OF SERVICE: 05/26/2019 CHIEF COMPLAINT: Idiopathic myelopathy, neuropathic pain, requiring complex medical management. HISTORY OF PRESENT ILLNESS: This is a very pleasant 63-year-old gentleman, who returns to the pain clinic today for a refill of his medications. He reports that he is doing quite well on his current regimen. He has been able to decrease his gabapentin slightly that he uses to help treat his idiopathic peripheral neuropathy. He feels that his pain still is well controlled by taking the lesser dose. He has also tried to decrease his methadone to 20 mg total a day, but found that his pain increased significantly when he decreased his methadone. So, therefore today, he remains on 25 total mg a day and reporting a pain score of 5/10. His pain is located in his lumbar spine as well as his hands, knees, and feet. He occasionally also has pain in his arms. It is an aching, constant, cramping, sharp pain that is worse with any activity, but again better with his medication as well as stretching. ALLERGIES: No known drug allergies. CURRENT LIST OF MEDICATIONS: Methadone 10 mg in the morning, 10 mg midday, and 5 mg at night, gabapentin 600 mg t.i.d., Protonix, Movantik, insulin, Jardiance, Coreg, ibuprofen, fish oil, glucosamine chondroitin, magnesium, aspirin, metformin. PQRS: 1. He does have osteoarthritis in his bilateral lower extremities and knees. Denies any rheumatoid arthritis. 2. Height is 5 feet 6 inches, weight is 200, BMI is 32. 3. Vital signs 156/98, pulse is 77, respirations 20, oxygen sat is 97. 4. Pain score is 5/10. 5. Denies dizziness, does not need help walking or standing, has not fallen in the last 3 months. The patient is not on any blood thinners, but does take medicine for hypertension. His opioid therapy is greater than 6 weeks; therefore, an opiate signed contract is on the chart. Risk assessment tool is low. Functional assessment is 46/70. 6. Recreational drug use, he denies. He is not a smoker [place] [address] PAIN MANAGEMENT CONSULTATION Name: JEF PACE Room #: REG [facility] Tracy#: [id number] Admission: 05/26/19 Attend Phys: Linda Leal Discharge: Date of : 55 Report #: [id number] According to the prescription monitoring system, the patient is filling appropriately for his medications. He is due to fill those today. His morphine milliequivalent is 75 MME. PHYSICAL EXAMINATION: GENERAL: This is a well-developed and well-nourished 63-year-old gentleman, who appears his stated age, placing his current pain score today at 5/10. HEENT: Normocephalic and atraumatic. The extraocular eye muscles are intact. Mucous membranes are moist. EXTREMITIES: No clubbing and no cyanosis. MUSCULOSKELETAL: He has pain that radiates into his lumbar back, to his bilateral legs, down his feet. His lower extremity strength is symmetrical in bulk and tone and strength at 5/10. He walks with a slightly antalgic gait. ASSESSMENT: 1. Idiopathic myelopathy. 2. Fibromyalgia. 3. Peripheral neuropathy of unknown origin. 4. Opioid dependency. 5. Opioid-induced constipation, on Movantik. 6. Complex medical management under terms of written opioid agreement. We reviewed the fact that opiate medications are being used to provide analgesia adequate to support activities of daily living, not attempting to achieve a specific pain score on the 0-10 Visual Analog Scale. The current opiate medications are providing sufficient analgesia to allow the patient to participate in activities of daily living. The patient is not exhibiting any aberrant behavior suggestive of drug diversion. The patient is not having any adverse reactions to medications. The patient is not suffering from daytime somnolence or mental acuity changes. The patient is managing opiate-induced constipation with appropriate wqwd-qud-pxxpafx agents and dietary considerations. The patient was counseled on concern for caution with operating a motor vehicle while using opiate medications. PLAN: 1. We discussed the treatment options with the patient today. The patient reports he did try to decrease his methadone to 20 mg a day. He found that he was more irritable and short tempered and his pain was increased. He returned to a total of 25 mg, taking 10 in the morning, 10 midday, and 5 at night and seems to do quite well with that current dose. We will continue this dose for the time being, prescribing 75 tablets for this month and for a 4-week release. The patient reports that he does have slightly less constipation with taking that medication. He also has started Movantik for his opioid-induced constipation and feels that that is beneficial. 2. The patient has decreased his gabapentin daily intake, currently taking [address] [facility] [address] [place] [address] PAIN MANAGEMENT CONSULTATION Name: JEF PACE [facility] [id number] Admission: 05/26/19 Attend Phys: Linda Leal Discharge: Date of : 55 Report #: [id number] mg 3 times a day. He finds this is helpful with his neuropathic pain and has not noticed an increase in his pain since he decreased his dose. We will continue him at this lower dose, prescribing 180 pills with one additional refill to his pharmacy. 3. The patient will be seen in 2 months. The patient is seen today in collaboration with Dr. Simon Perrin. <ELECTRONICALLY SIGNED> By: Linda Leal 05/28/19 0813 [id number] 2035 Linda Leal /nt
== END ==
LOC: PAIN 05-23 12:31
DX: G95.89 Other specified diseases of spinal cord (principal); M79.7 Fibromyalgia; G62.9 Polyneuropathy, unspecified; Z79.891 Long term (current) use of opiate analgesic; Z79.899 Other long term (current) drug therapy

== ENCOUNTER → 2019-08-18 | Outpatient (CLI) | payer OTHER ==
[~2019-08-18] VITALS: Ht 167.6 cm; Wt 90.2 kg
[2019-08-18 09:06] VITALS: BP 140/83
--- NOTE | 2019-08-18 09:14 | NUR ---
Pain Clinic Assessment: 1. History of Osteoarthritis: Left Lower Extremity Right Lower Extremity B/L KNEES History of Rheumatoid Arthritis: NO 2. Height: 5 ft. 6 in. 167.6 cm. Weight: 198.8 lb. oz. 90.175 kg. Patient's BMI: 32.1 3. Vital Signs: BP: 140/83 Pulse: 75 Resp: 16 Temp: 02 Sat: 98 ECG Mon: 4. Pain Intensity: 8 5. Fall Risk: Dizziness: N Needs help standing or walking: N Fallen in the last 3 months: N Fall risk comments: 6. Patient on Blood Thinner: None 7. History of Hypertension: Y 8. Opioid Therapy greater than 6 weeks: Y Opiate Contract Signed: 10/21/15 9. Risk Assessment Tool Provided: 1-low 10. Functional Assessment Tool: 11. Recreational Drug Use: Never Drug Type: Tobacco Use: Never Smoker Tobacco Type: Amount or Packs/day: How Many Years: Alcohol Use: No Frequency: Quant:
--- NOTE | 2019-08-18 13:31 | HPC ---
[facility] [place] [address] PAIN MANAGEMENT CONSULTATION Name: JEF PACE Room #: REG JALYN OswaldAliyahMarieAliyah#: [id number] Admission: 08/18/19 Attend Phys: Simon Perrin DO Discharge: Date of : 55 Report #: [id number] THIS REPORT FOR: cc: Dain Byrd MD,Dain Perrin,Simon Ray DO ~ DATE OF SERVICE: 08/18/2019 REFERRING PHYSICIAN: Dr. Dain Byrd. CHIEF COMPLAINT: Idiopathic myelopathy, neuropathic pain, requiring complex medication management. HISTORY OF PRESENT ILLNESS: As you know, the patient is a very pleasant 64-year-old male, who returns today in followup visit for refill of medications. He feels medications are working beneficially for pain control. He reports pain level today of 8/10 as he has run out of his methadone 2 days ago, but yet has not had any withdrawal effects. His pain has begun to intensify, which is consistent with the medication reduction. He returns today for refill of medications. He is denying side effects to therapy including somnolence, decreased mental acuity, disorientation, confusion, mental slowing. The patient requests refill of medications for the next 2 months. He indicates no new concerns for cough, fever, chills consistent with COVID-19 infection. He states he is social isolating and has been consistent with his daily activities of restricting contact with other individuals. He returns today requesting refill on medications. ALLERGIES: No known drug allergies. CURRENT MEDICATIONS: Methadone 10 mg 3 times a day, gabapentin 900 mg 3 times a day, pantoprazole 40 mg per day, Movantik 25 mg once a day, Toujeo 300 units subcutaneous as directed, lispro sliding scale, Victoza as directed, Jardiance 25 mg once a day, carvedilol 6.25 mg twice a day, ibuprofen 400 mg 3 times a day, omega-3 fish oil 1 tab per day, glucosamine chondroitin 1 tab per day, magnesium oxide 400 mg per day, aspirin 81 mg per day, lisinopril 10 mg per day, and metformin 1000 mg twice a day. SOCIAL HISTORY: The patient denies tobacco, alcohol, IV or illicit drug use. He is unaccompanied at today's visit. IMAGING: No new imaging available. PHYSICAL EXAMINATION: VITAL SIGNS: Blood pressure 140/83, pulse 75, respiratory rate 16 and unlabored. The patient is 98% on room air. Height 5 feet 6 inches tall, weight [facility] [address] [place] [address] PAIN MANAGEMENT CONSULTATION Name: JEF PACE Room #: REG [facility]#: [id number] Admission: 08/18/19 Attend Phys: Simon Perrin DO Discharge: Date of : 55 Report #: [id number] 198.8 pounds and BMI calculated 32.1. GENERAL: Well-developed, well-nourished, well-hydrated 64-year-old male appearing stated age, pain is rated today 8/10. HEENT: Normocephalic, atraumatic. Pupils equal, round, reactive to light. EXTREMITIES: Show no clubbing, no cyanosis, and no edema. MUSCULOSKELETAL: Lower extremity strength appears symmetrical as does the upper extremity strength. There is deconditioning noted bilaterally. He appears to be intact tactilely to C5 through S1 dermatomes. He has a mild antalgic gait. Lumbar provocation testing is met with axial back pain. ASSESSMENT: 1. Fibromyalgia. 2. Idiopathic myelopathy. 3. Peripheral neuropathy of unknown origin. 4. Opioid dependency. 5. Complex medication management utilizing scheduled medications. 6. Opioid-induced constipation. 7. Chronic intractable pain. PLAN: 1. The patient returns today in followup visit having just run out of his methadone 2 days ago. He is now experiencing some increased pain, but no significant withdrawal-like effects. He states he is little more anxious this morning, which may be the initiation of some withdrawal. We have discussed with the patient our concerns about running out of his medications. Apparently, he had been a quarantining himself to reduce his risk of COVID exposure. He has been successful at reducing his risk, but unfortunately ran out of his medications 2 days ago. He returns today in followup visit for refill on medications. He is denying side effects to medication including sleepiness, disorientation, confusion, mental slowing. He returns for medication today. 2. We reviewed the fact that opiate medications are being used to provide analgesia adequate to support activities of daily living, not attempting to achieve a specific pain score on the 0-10 Visual Analog Scale. The current opiate medications are providing sufficient analgesia to allow the patient to participate in activities of daily living. The patient is not exhibiting any aberrant behavior suggestive of drug diversion. The patient is not having any adverse reactions to medications. The patient is not suffering from daytime somnolence or mental acuity changes. The patient is managing opiate-induced constipation with appropriate nykr-drk-qfaydxw agents and dietary considerations. The patient was counseled on concern for caution with operating a motor vehicle while using opiate medications. A physical exam was performed and the patient's functional status was evaluated. All patients with back pain were advised against the bed rest greater than 4 days and were advised to return to normal activities. Pain score assessment was noted and the treatment plan was reviewed with the patient. All current [address] [place] [address] PAIN MANAGEMENT CONSULTATION Name: JEF PACE Room #: REG JALYN Tracy#: [id number] Admission: 08/18/19 Attend Phys: Simon Perrin DO Discharge: Date of : 55 Report #: [id number] medications, both prescribed and OTC were reviewed and reconciled on the electronic medical record. Tobacco screening was accomplished and smoking cessation was advised when indicated. BMI was noted and diet/exercise modification was recommended for all patients following outside normal parameters. I reviewed with the patient today their responsibilities to safeguard prescription medications, reviewed their responsibility to utilize medications only as prescribed by the physician. They are to seek and receive pain medications only from 1 physician group ( [facility]). They are to use 1 pharmacy and keep the clinic informed if they change pharmacies. Their responsibilities include making followup visits in a timely fashion and to avoid abrupt discontinuation of medication usage. Their responsibilities further include bringing their medications (bottles from the pharmacy with residual pills) to the visit for possible confirmation of pill counts and the patient understands it is their responsibility to submit to random drug screens to ensure both that the medications prescribed are present, and that no other controlled substances are present. All prescriptions provided today were generated electronically. 3. The patient was provided prescription of methadone 10 mg dose 1 tab in the morning, 1 tab at noon and a half tablet at night. He was given #75 tablets, releasing today and 4 weeks from today, 2 months' worth of medication. The patient was advised to continue the medication as directed. He is to continue to monitor his medications as he completes his first month of medication. He should make an appointment with our clinic in about 2 weeks following to obtain refills. 4. The patient will increase his gabapentin from his current dose of 900 mg in the morning, 600 mg at noon and 900 mg at night to 900 mg t.i.d. This should help with his pain more effectively. I have provided the patient #270 tablets with 1 refill, 2 months' worth of medication. 5. We will see the patient back in followup visit in 2 months for medication management. We are hopeful the patient will see improvement in his overall pain with the medications restarted today. He will contact our clinic with any questions or concerns. We did note that the patient had started on Movantik 25 mg dose, which apparently has improved his opioid-induced constipation. We are pleased to see that his third alliance party payer is covering this medication as this is a difficult medication to receive and it is very effective in this patient's case. We will continue to monitor this issue. 6. We will see the patient back in followup visit in 2 months. The patient's opioid morphine equivalents is calculated at 75, which places him at higher risk and has to be followed on a 2-month basis. <ELECTRONICALLY SIGNED> By: Simon Perrin DO 08/18/19 1331 1023 [id number] Simon Perrin DO /nt
== END ==
LOC: PAIN 08:51
DX: G99.2 Myelopathy in diseases classified elsewhere (principal); G95.9 Disease of spinal cord, unspecified; M79.7 Fibromyalgia; G62.9 Polyneuropathy, unspecified; F11.20 Opioid dependence, uncomplicated; G89.29 Other chronic pain; Z79.899 Other long term (current) drug therapy

== ENCOUNTER → 2019-10-13 | Outpatient (CLI) | payer OTHER ==
[~2019-10-13] VITALS: Ht 167.6 cm; Wt 89.0 kg
[~2019-10-13] MED LIST changes: +ANDROGEL75 GM TOP
[2019-10-13 10:02] VITALS: BP 151/59
--- NOTE | 2019-10-13 10:10 | NUR ---
Pain Clinic Assessment: 1. History of Osteoarthritis: Left Lower Extremity Right Lower Extremity B/L KNEES BACK History of Rheumatoid Arthritis: NO 2. Height: 5 ft. 6 in. 167.6 cm. Weight: 196.2 lb. oz. 88.996 kg. Patient's BMI: 31.7 3. Vital Signs: BP: 151/59 Pulse: 73 Resp: 16 Temp: 02 Sat: 97 ECG Mon: 4. Pain Intensity: 6 5. Fall Risk: Dizziness: N Needs help standing or walking: N Fallen in the last 3 months: N Fall risk comments: 6. Patient on Blood Thinner: None 7. History of Hypertension: Y 8. Opioid Therapy greater than 6 weeks: Y Opiate Contract Signed: 10/21/15 9. Risk Assessment Tool Provided: 1-low 10. Functional Assessment Tool: 11. Recreational Drug Use: Never Drug Type: Tobacco Use: Never Smoker Tobacco Type: Amount or Packs/day: How Many Years: Alcohol Use: No Frequency: Quant:
--- NOTE | 2019-10-14 07:41 | HPC ---
[facility] [address] [place] [address] PAIN MANAGEMENT CONSULTATION Name: JEF PACE Room #: REG [facility] Logan.#: [id number] Admission: 10/13/19 Attend Phys: Linda Leal Discharge: Date of : 55 Report #: [id number] THIS REPORT FOR: cc: Dain Byrd MD, Robert MD Hocker,Linda YIP ~ CC: Simon Perrin DO DATE OF SERVICE: 10/13/2019 CHIEF COMPLAINT: Idiopathic myelopathy, neuropathic pain requiring complex medical management. HISTORY OF PRESENT ILLNESS: Now this is a very pleasant 64-year-old gentleman who returns to the pain clinic today for refill of his opioid medications that he uses to help take care of his ongoing pain. He does have multiple pain generators including his low back, bilateral legs. Also, has pain in his shoulders and arms. Today, he is reporting his pain score is 6/10, most significantly pain in his knees. It is an aching, sharp pain, especially when he straightens his legs. His pain is exacerbated when he walks and is physically active, he feels that hot baths as well as his medication have been beneficial in controlling his pain with no daytime somnolence, though he does experience some constipation issues and he is recently started on Movantik. This has been beneficial in helping alleviate some of those issues. The patient reports that he did see an orthopedic doctor for his knee pain. He thought he may need to have total knee replacement. It was determined that he has tendinitis in both legs. He has started on meloxicam and this has decreased some of his painful joints. He is also starting physical therapy to help with strengthening and stretching exercises. Today, he would like a refill of medications from Dr. Perrin. ALLERGIES: No known drug allergies. CURRENT LIST OF MEDICATIONS: Testosterone, methadone 10 mg one in the morning, one at noon, half at night, gabapentin 900 mg 3 times a day, Protonix, Movantik, insulin, Humalog, Victoza, Jardiance, carvedilol, fish oil, meloxicam, triple flex caplet, magnesium, aspirin, Zestril, Glucophage. PQRS: 1. He has osteoarthritis in his lower extremities, knees and back. Denies any rheumatoid arthritis. 2. Height is 5 feet 6 inches, weight is 196, BMI is 31. Vital signs 151/59, pulse is 73, respirations 16, oxygen sat is 97%. Pain score is 6/10. 3. Denies dizziness. Does not need help walking or standing, has not fallen in the last 3 months. The patient is not on any blood thinners, [place] [address] PAIN MANAGEMENT CONSULTATION Name: KATELYNNJEF R Room #: REG JALYN Molina#: [id number] Admission: 10/13/19 Attend Phys: Linda Leal Discharge: Date of : 55 Report #: [id number] medicine for hypertension. Opioid therapy is greater than 6 weeks; therefore, an opioid signed contract is on the chart. Risk assessment tool is low. Functional assessment is 46/70. 4. Recreational drug use, he denies. He is not a smoker and does not drink alcohol. According to the prescription monitoring system, the patient is filling appropriately. He is due to fill his medications today, filling them in a timely fashion. According to the [facility] guidelines, his morphine mEq per day is 75. There is a recent drug screen on the chart that is appropriate for his medications. PHYSICAL EXAMINATION: GENERAL: This is a well-developed, well-nourished, well-hydrated 64-year-old gentleman who appears his stated age, placing his current pain score 6/10. HEENT: Normocephalic, atraumatic. Pupils equal, round and reactive to light. He is wearing a mask. EXTREMITIES: No clubbing, no cyanosis, no edema noted. MUSCULOSKELETAL: He is deconditioned in his lower extremities. The strength appears symmetrical. He has intact tactile from C5-S1. He has an antalgic gait. Tenderness in his lower lumbar spine. ASSESSMENT: 1. Fibromyalgia. 2. Idiopathic myopathy. 3. Peripheral neuropathy of unknown origin. 4. Opioid dependency. 5. Complex medical management utilizing scheduled medications. 6. Opioid-induced constipation. We reviewed the fact that opiate medications are being used to provide analgesia adequate to support activities of daily living, not attempting to achieve a specific pain score on the 0-10 Visual Analog Scale. The current opiate medications are providing sufficient analgesia to allow the patient to participate in activities of daily living. The patient is not exhibiting any aberrant behavior suggestive of drug diversion. The patient is not having any adverse reactions to medications. The patient is not suffering from daytime somnolence or mental acuity changes. The patient is managing opiate-induced constipation with appropriate uvrz-nhk-lbwmpat agents and dietary considerations. The patient was counseled on concern for caution with operating a motor vehicle while using opiate medications. PLAN: 1. We discussed treatment options with the patient today. The patient states about 2 weeks ago, he had increased his methadone back to 3 full tablets a day. I explained to the patient he must take them as prescribed. We are prescribing [address] [address] PAIN MANAGEMENT CONSULTATION Name: JEF PACE Room #: REG Macie Ford#: [id number] Admission: 10/13/19 Attend Phys: Linda Leal Discharge: Date of : 55 Report #: [id number] 1 tablet in the morning, 1 midday and a half at night, quantity 75 for the month. The patient states he would like to decrease his medicines and hopefully wean off if he is able. I explained to him that he needs to go back to his prescribed dose. We will decrease slowly decreasing half a pill every month to see how his pain is managed with the lower doses. The patient is agreeable with this. Scripts will be sent electronically today for methadone 10 mg, #75 for 2 months. 2. The patient continues his gabapentin, which he finds very beneficial in helping with his neuropathy. We will send 270 pills with 5 additional refills. This is a 6-month supply. 3. The patient is seen in collaboration with Dr. Simon Perrin today. <ELECTRONICALLY SIGNED> By: Linda Leal 10/14/19 0741 [id number] Linda Leal /geraldine
== END ==
LOC: PAIN 06:53
DX: G62.9 Polyneuropathy, unspecified (principal); F11.20 Opioid dependence, uncomplicated

== ENCOUNTER → 2020-01-19 | Outpatient (CLI) | payer OTHER ==
--- NOTE | 2020-01-21 07:30 | HPC ---
[facility] [address] [address] PAIN MANAGEMENT CONSULTATION Name: JEF PACE Room #: REG Macie Logan.#: [id number] Admission: 01/19/20 Attend Phys: Simon Perrin DO Discharge: Date of : 55 Report #: [id number] THIS REPORT FOR: cc: Dain Byrd MD,Simon Nickerson MD, DO ~ DATE OF SERVICE: 01/19/2020 REFERRING PHYSICIAN: Dain Byrd MD CHIEF COMPLAINT: Idiopathic myelopathy and neuropathic pain. HISTORY OF PRESENT ILLNESS: As you know, the patient is a 64-year-old male who is being seen by telehealth visit today due to his family being currently actively infected with COVID-19. The patient states they are recovering well without any long-term complications. We made today's appointment to discuss the continuation of medication management. He is placing his pain today at around 6/10. He is denying side effects to his methadone therapy. He feels the methadone is working well for pain control. He has requested this telehealth appointment to receive refill of the medication for which he takes methadone 10 mg morning, 10 mg at noon and 5 mg at night. He receives 75 tablets of methadone 10 mg per month and has been consistent with his medication use. He returns via telehealth visit to receive refill of medications. ALLERGIES: No known drug allergies. CURRENT MEDICATIONS: Methadone 10 mg morning, 10 mg at noon and 5 mg at night, gabapentin 900 mg 3 times a day, pantoprazole 40 mg per day, Movantik 25 mg per day, Toujeo 300 units subcutaneous as directed, Lispro sliding scale, Victoza as directed, Jardiance 25 mg per day, carvedilol 6.25 mg b.i.d., ibuprofen 400 mg 3 times a day, omega-3 fish oil 1 tab per day, glucosamine chondroitin 1 tab per day, magnesium oxide 400 mg per day, aspirin 81 mg per day, lisinopril 10 mg per day, metformin 1000 mg once a day. SOCIAL HISTORY: The patient denies tobacco, alcohol, IV or illicit drug use. He is unaccompanied at the telehealth visit today. IMAGING: There is no new imaging available. PHYSICAL EXAMINATION: VITAL SIGNS: Reported stable. The patient is denying any changes in his health since our last visit. GENERAL: Well-developed, well-nourished, well-hydrated 64-year-old male. He is appearing stable via our telehealth visit today. HEENT: Normocephalic, atraumatic. Pupils are responsive. No scleral icterus. [address] [address] PAIN MANAGEMENT CONSULTATION Name: JEF PACE Room #: REG Macie Ford.#: [id number] Admission: 01/19/20 Attend Phys: Simon Perrin DO Discharge: Date of : 55 Report #: [id number] LUNGS: Clear by conversation. No active coughing or wheezing. EXTREMITIES: Show no changes. ASSESSMENT: 1. Fibromyalgia. 2. Idiopathic myelopathy. 3. Peripheral neuropathy of unknown origin. 4. Opioid dependency. 5. Complex medication management utilizing scheduled medications. 6. Opioid-induced constipation. 7. Chronic intractable pain. PLAN: 1. The patient has returned to our clinic via a telehealth visit today for a discussion of medication management. He feels medications are working beneficially for pain control. We established today's appointment via telehealth as the patient and his family are currently and actively infected with COVID-19 and is recovering from the disease process. The patient had contacted our clinic last week to establish this appointment, so that he can safely discuss continuation of his medication management with our services. The patient states he is having no side effects to medication and wishes to continue therapy. 2. We reviewed the fact that opiate medications are being used to provide analgesia adequate to support activities of daily living, not attempting to achieve a specific pain score on the 0-10 Visual Analog Scale. The current opiate medications are providing sufficient analgesia to allow the patient to participate in activities of daily living. The patient is not exhibiting any aberrant behavior suggestive of drug diversion. The patient is not having any adverse reactions to medications. The patient is not suffering from daytime somnolence or mental acuity changes. The patient is managing opiate-induced constipation with appropriate jusw-tbl-nzniaeq agents and dietary considerations. The patient was counseled on concern for caution with operating a motor vehicle while using opiate medications. A physical exam was performed and the patient's functional status was evaluated. All patients with back pain were advised against the bed rest greater than 4 days and were advised to return to normal activities. Pain score assessment was noted and the treatment plan was reviewed with the patient. All current medications, both prescribed and OTC were reviewed and reconciled on the electronic medical record. Tobacco screening was accomplished and smoking cessation was advised when indicated. BMI was noted and diet/exercise modification was recommended for all patients following outside normal parameters. I reviewed with the patient today their responsibilities to safeguard prescription medications, reviewed their responsibility to utilize medications [address] [address] PAIN MANAGEMENT CONSULTATION Name: JEF PACE Room #: REG CLMacie Molina#: [id number] Admission: 01/19/20 Attend Phys: Simon Perrin DO Discharge: Date of : 55 Report #: [id number] only as prescribed by the physician. They are to seek and receive pain medications only from 1 physician group ( [facility]). They are to use 1 pharmacy and keep the clinic informed if they change pharmacies. Their responsibilities include making followup visits in a timely fashion and to avoid abrupt discontinuation of medication usage. Their responsibilities further include bringing their medications (bottles from the pharmacy with residual pills) to the visit for possible confirmation of pill counts and the patient understands it is their responsibility to submit to random drug screens to ensure both that the medications prescribed are present, and that no other controlled substances are present. All prescriptions provided today were generated electronically. 3. The patient was provided a prescription of methadone 10 mg in the morning, 10 mg at noon and 5 mg at night. His other medication has been prescribed and is being taken. The patient will fill these prescriptions as directed. All prescriptions sent via e-scribed to local pharmacy. 4. We have refilled the patient's gabapentin at 900 mg t.i.d. I have provided prescriptions for the medication to his local pharmacy. He can pick these up at his earliest convenience. He is having no side effects of sleepiness, disorientation, confusion, mental slowing or difficulty mentating with the therapy. 5. We will see the patient back in followup visit in 3 months for medication management. At that time, we will discuss efficacy of medications to determine if continuation of this therapy would be recommended. <ELECTRONICALLY SIGNED> By: Simon Perrin DO 01/21/20 0730 1251 [id number] Simon Perrin DO /nt
== END ==
LOC: PAIN 09-30 06:49 → TELEPC 06:52 → PAIN 01-20 13:49
PROVIDERS: ATTEND Anesthesiology Pain Medicine
DX: M79.7 Fibromyalgia (principal); G99.2 Myelopathy in diseases classified elsewhere; G62.9 Polyneuropathy, unspecified; F11.20 Opioid dependence, uncomplicated; K59.03 Drug induced constipation; G89.29 Other chronic pain

== ENCOUNTER → 2020-02-16 | Outpatient (CLI) | payer OTHER ==
[~2020-02-16] VITALS: Ht 175.3 cm; Wt 86.6 kg
[~2020-02-16] MED LIST changes: +HYDROCODONE-AP1 EA11 PO
[2020-02-16 12:43] VITALS: BP 188/94
--- NOTE | 2020-02-16 12:46 | NUR ---
Pain Clinic Assessment: 1. History of Osteoarthritis: Left Lower Extremity Right Lower Extremity B/L KNEES BACK History of Rheumatoid Arthritis: NO 2. Height: 5 ft. 9 in. 175.3 cm. Weight: 191.0 lb. oz. 86.637 kg. Patient's BMI: 28.2 3. Vital Signs: BP: 188/94 Pulse: 89 Resp: 16 Temp: 02 Sat: 99 ECG Mon: 4. Pain Intensity: 8-9 5. Fall Risk: Dizziness: Y Needs help standing or walking: N Fallen in the last 3 months: N Fall risk comments: 6. Patient on Blood Thinner: None 7. History of Hypertension: Y 8. Opioid Therapy greater than 6 weeks: Y Opiate Contract Signed: 10/21/15 9. Risk Assessment Tool Provided: 1-low 10. Functional Assessment Tool: 11. Recreational Drug Use: Never Drug Type: Tobacco Use: Never Smoker Tobacco Type: Amount or Packs/day: How Many Years: Alcohol Use: No Frequency: Quant:
--- NOTE | 2020-02-23 08:51 | HPC ---
[facility] [place] [address] PAIN MANAGEMENT CONSULTATION Name: JEF PACE Room #: REG JALYN Molina#: [id number] Admission: 02/16/20 Attend Phys: Simon Perrin DO Discharge: Date of : 55 Report #: [id number] CC: Simon Byrd DATE OF SERVICE: 02/16/2020 CHIEF COMPLAINT: Bilateral lower extremity pain/idiopathic myelopathy and neuropathy. HISTORY OF PRESENT ILLNESS: As you know, the patient is a 64-year-old male who has been followed by my partner, Dr. Rocael Perrin since 2016 for idiopathic myelopathy with unknown etiology. He has been treated with opioid medications, which according to the patient was working beneficially, but now he wishes to come off the medication as he feels he is "addicted." He returns today to make adjustments in medications. He is finding it more difficult to obtain the methadone [place] and wishes to make an adjustment in his therapy. He has been under contract with [facility] since 2016 and his reminded of the contract each and every time he is here at the clinic. He did obtain opioid medications from another individual that was flagged at our service. He returns to discuss this today. He also wishes to discuss other treatment options and to adjust medications as he hopes to get off opioid medications long-term. ALLERGIES: No known drug allergies. CURRENT MEDICATIONS: Methadone 10 mg morning, 10 mg at noon, 5 mg at night; gabapentin 900 mg t.i.d.; pantoprazole 40 mg per day; Movantik 25 mg b.i.d.; Toujeo 300 units subcutaneous per day; lispro sliding scale; Victoza as directed; Jardiance 25 mg per day; carvedilol 6.25 mg b.i.d.; ibuprofen 400 mg 3 times a day; omega-3 fish oil 1 tablet per day; glucosamine chondroitin 1 tablet per day; magnesium oxide 400 mg per day; aspirin 81 mg per day; lisinopril 10 mg per day; and metformin 1000 mg once a day. SOCIAL HISTORY: The patient reports he is a nonsmoker. Denies IV or illicit drug use. Denies any chronic alcohol use. He is on disability. He is accompanied by his present in the room today. IMAGING: No new imaging available. PHYSICAL EXAMINATION: VITAL SIGNS: Blood pressure 180/94, pulse is 89, respiratory rate 16 and unlabored, the patient is 99% on room air. Height 5 feet 9 inches tall, weight 191 pounds, BMI calculated 28.2. GENERAL: Well-developed, well-nourished, well-hydrated 64-year-old male appearing stated age. He is in no acute distress. He is awake, alert and reports he is oriented. Placing current pain score is 8-9/10. HEENT: Normocephalic and atraumatic. Pupils are equal, round and reactive. The patient is wearing a face mask in compliance with COVID-19 restrictions. EXTREMITIES: Show no clubbing, no cyanosis, no edema. MUSCULOSKELETAL: Tactile sensation appears normal in lower extremities. I am unable to elicit any findings concerning of progressively worsening neuropathy. ASSESSMENT: 1. Idiopathic myelopathy. 2. Fibromyalgia. 3. Peripheral neuropathy of unknown origin. 4. Opioid dependency. 5. Opioid-induced constipation. 6. Complex medication management utilizing scheduled medications. 7. Chronic intractable pain. PLAN: 1. The patient returns today in followup visit, requesting adjustments in medication management to help come off methadone. He feels the methadone has run its course and is no longer effective and he does feel like he is now dependent/addicted to the medication. This would be likely of case as he has been on the medication for an extended period of time. We recommend weaning parameter of the medication. He is currently taking just 10 mg per day or reduce to 5 mg a day and continue for 14 days to come off medication entirely. This will give him a chance to reset his mu receptors to a lessening dose of opioid medication. He will watch for any withdrawal-like effects. If he feels withdrawal effects, he is to utilize the following medication. 2. The patient will be started on Greer 7.5/325 one tablet p.o. q.6 hours p.r.n. for pain, given the patient #120. He is to take the medication as needed. He is not to rely on the medication prophylactically. He was given #120 tablets releasing today and 4 weeks from today as well as 8 weeks today, 3 months' worth of medication. The patient was advised this medication is under contract with the [facility] and he will be held to that contract. He is not to obtain any other opioid medications from any other physician for any reason without clearing this with our clinic initially. The patient reports he understood. He had difficulty with understanding his opioid contract and a recent incident here at the clinic. We have reiterated the opioid contract stipulations today. He has signed the opioid contract after reviewing. 3. The patient and I did discuss the possibility of utilizing a spinal cord stimulator as an option for treatment. He may see benefit with this device. His peripheral neuropathic symptoms are unknown in etiology, though complex regional pain syndrome is not too dissimilar. There is a possibility we can utilize a spinal cord stimulator for pain control. We will begin the process of trying to receive authorization to undergo this trial procedure. If it is effective, then we would have the patient move forward with permanent implant, which will wean him off his opioids entirely. The patient is agreeable with this plan. We have given the patient information both in digital and written form to review today. He will contact the available psychiatric physicians to undergo psychiatric evaluation. Once the patient has completed the psychiatric evaluation, assuming there is no psychopathology that would preclude us from moving forward with the device, we will then begin the process of authorization. The patient was advised to contact the psychiatrist as quickly as possible and begin that evaluation. 4. Plans to see the patient back in followup visit in 3 months to discuss medication management further. We are hopeful we will see him back prior to that visit to discuss implantation of a trial stimulator for pain control. <ELECTRONICALLY SIGNED> By: Simon Perrin DO 02/23/20 [id number] Simon Perrin DO /geraldine
== END ==
LOC: PAIN 06:54
PROVIDERS: ATTEND Anesthesiology Pain Medicine
DX: G62.9 Polyneuropathy, unspecified (principal); G99.2 Myelopathy in diseases classified elsewhere; M79.7 Fibromyalgia; F11.20 Opioid dependence, uncomplicated; K59.03 Drug induced constipation; G89.29 Other chronic pain; Z79.899 Other long term (current) drug therapy